=== PATIENT | male | born 1960 | race Caucasian/White ===

== ENCOUNTER → 2017-08-02 11:38 | Day surgery (SDC) | payer BC ==
[2017-08-02 11:16] VITALS: BP 142/87
[~2017-08-02 11:38] MED LIST: Acetaminophen TAB* 325 MG PO PRN; Buffered Lidocaine 0.9% SYRIN* 5 ML/SYR SYRINGE INTRADERM ONE; Buffered Lidocaine 0.9% SYRIN* 5 ML/SYR SYRINGE ONE; DiMENhydriNATE IV* 50 MG/ML VIAL IV PUSH PRN; Famotidine IV* 10 MG/ML 2 ML (20 mg) ONE; HYDROcodone/ACETAMIN 5-325 MG* 1 TAB PO PRN; Levalbuterol 0.63MG/3ML NEB* UNIT OF USE INH PRN; Lidocaine 2% EPI 1:200000 MPF* 20 ML VIAL ONE; Lidocaine 2% PF * 5 ML VIAL ONE; Midazolam* 1 MG/ML 2 ML VIAL (2 MG) ONE; Ondansetron INJ* 2 MG/ML VIAL IV PRN; Oxymetazoline 0.05% NASAL SPR* 15 ML BTL ONE; PROCHLORPERAZINE INJ 5 MG/ML 2 ML VIAL IV PRN; fentaNYL* 50 MCG/ML 2 ML VIAL (100 MCG VIAL) IV PRN; fentaNYL* 50 MCG/ML 2 ML VIAL (100 MCG VIAL) ONE
--- NOTE | 2017-08-02 21:27 | OP ---
DATE OF OPERATION: 08/02/17 - [facility] DATE OF : 64 SURGEON: Paul Diaz MD ANESTHESIOLOGIST: Dr. Teran ANESTHESIA: General PREOPERATIVE DIAGNOSES: 1. Deviated nasal septum. 2. Hypertrophied turbinates. 3. Nasal dyspnea. POSTOPERATIVE DIAGNOSES: 1. Deviated nasal septum. 2. Hypertrophied turbinates. 3. Nasal dyspnea. OPERATIVE PROCEDURE: Septoplasty with submucosal resection of inferior turbinates. BRIEF HISTORY: This 57-year-old gentleman with history of frequent syncope, had nasal fracture after a syncopal episode and had a significant deviation of the septum with construction and obstruction of the nasal aperture. DESCRIPTION OF PROCEDURE: The patient was taken to the operating room, the patient intubated LMA. Nose was decongested with Afrin pledgets. 2% lidocaine with epinephrine was then infiltrated into the mucosa of the septum on both sides. Left hemitransfixion incision created, mucoperichondrial flap was elevated. Quadrangular cartilage was then disarticulated which was already off from the septum and disarticulated along the vomer-ethmoidal complex posteriorly. I resected a portion of the inferior maxillary crest attachment. The quadrangular cartilage was then incised, it was free floating. It was replaced in the midline. Portion of the vomer-ethmoidal complex was removed. The cartilage was then secured in the midline with multiple mattress sutures and subsequently Vladimir splints were applied with Prolene to keep the mucosa in place and adherent. We turned our attention to the inferior turbinates. Submucosal resection was carried out, resecting some of the bone and then resecting and cauterizing the inferior turbinate mucosa and bone. Small amount of packing soft type, which was absorbable was put. Small nasal dressing was applied. The patient was awakened and sent to recovery room in stable condition. Instrument and sponge count correct. Blood loss minimal. [id number]/[facility] #: [id number] [facility]
== END | disposition home or self-care (01) ==
LOC: OR 11:38
PROVIDERS: ATTEND Otolaryngology
DX: J34.2 Deviated nasal septum (principal); J34.3 Hypertrophy of nasal turbinates; R06.09 Other forms of dyspnea; K21.9 Gastro-esophageal reflux disease without esophagitis; F17.210 Nicotine dependence, cigarettes, uncomplicated
CPT/HCPCS: A9270-GY; J2250; J3010